=== PATIENT | female | born 1995 | race Caucasian/White ===

== ENCOUNTER 2018-12-29 20:11 | Emergency (ER) | payer OTHER ==
[~2018-12-29] VITALS: Ht 165.1 cm; Wt 89.9 kg
[2018-12-29 20:19] VITALS: Ht 165.1 cm; Wt 89.9 kg
--- NOTE | 2018-12-29 21:51 | ERD ---
ER Documentation Chief Complaint Chief Complaint cramps; mostly constipated; abd pain x 2 days HPI 23-year-old female, previously healthy, presents to the emergency department, complaining of 2 weeks with diffuse colicky abdominal pain, associated with constipation. The pain is described as dull, 5/10. She denies fever, no chills , no diarrhea, no nausea or vomiting. ROS All systems reviewed and are negative except as per history of present illness. Medications Home Meds Active Scripts Acetaminophen* (Tylenol*) 325 Mg Tablet, 2 TAB PO Q6 PRN for PAIN AND OR ELEVATED TEMP, #20 TAB Prov:MARSHA SAVAGE MD 12/29/18 Polyethylene Glycol* (Miralax*) 17 Gm Powd.pack, 17 GM PO DAILY, #7 Prov:MARSHA SAVAGE MD 12/29/18 Magnesium Hydroxide* (Milk Of Magnesia*) 400 Mg/5 Ml Oral.susp, 30 ML PO BID for 3 Days, #1 BOTTLE Prov:MARSHA SAVAGE MD 12/29/18 Allergies Allergies: Coded Allergies: Penicillins (Verified Allergy, Unknown, 12/29/18) PMhx/Soc Hx Alcohol Use: No Hx Substance Use: No Hx Tobacco Use: No Smoking Status: Never smoker FmHx Family History: No diabetes, No coronary disease Physical Exam Vitals Vital Signs Date Temp Pulse Resp B/P (MAP) Pulse Ox O2 O2 Flow FiO2 Time Delivery Rate 12/29/18 98.4 71 20 143/67 100 20:19 (92) Physical Exam Const: No acute distress Head: Atraumatic Eyes: Normal Conjunctiva ENT: Normal External Ears, Nose and Mouth. Neck: Full range of motion. No meningismus. Resp: Clear to auscultation bilaterally Cardio: Regular rate and rhythm, no murmurs Abd: Soft, non tender, non distended. Normal bowel sounds Skin: No petechiae or rashes Back: No midline or flank tenderness Ext: No cyanosis, or edema Neur: Awake and alert Psych: Normal Mood and Affect Result Diagram: 12/29/18221812/29/182218 Results 24 hrs Laboratory Tests Test 12/29/18 22:19 12/29/18 22:26 12/29/18 22:27 White Blood Count 8.5 10^3/ul Red Blood Count 4.58 10^6/ul Hemoglobin 13.5 g/dl Hematocrit 40.0 % Mean Corpuscular Volume 87.3 fl Mean Corpuscular Hemoglobin 29.5 pg Mean Corpuscular Hemoglobin Concent 33.8 g/dl Red Cell Distribution Width 13.4 % Platelet Count 236 10^3/UL Mean Platelet Volume 11.4 fl Immature Granulocytes % 0.200 % Neutrophils % 60.5 % Lymphocytes % 29.9 % Monocytes % 7.3 % Eosinophils % 1.5 % Basophils % 0.6 % Nucleated Red Blood Cells % 0.0 /100WBC Immature Granulocytes # 0.020 10^3/ul Neutrophils # 5.1 10^3/ul Lymphocytes # 2.5 10^3/ul Monocytes # 0.6 10^3/ul Eosinophils # 0.1 10^3/ul Basophils # 0.1 10^3/ul Nucleated Red Blood Cells # 0.0 10^3/ul Sodium Level 143 mmol/L Potassium Level 3.4 mmol/L Chloride Level 112 mmol/L Carbon Dioxide Level 20 mmol/L Anion Gap 11 Blood Urea Nitrogen 8 mg/dl Creatinine 0.83 mg/dl Est Glomerular Filtrat Rate mL/min > 60 mL/min Glucose Level 91 mg/dl Calcium Level 9.8 mg/dl Total Bilirubin 0.6 mg/dl Direct Bilirubin 0.00 mg/dl Indirect Bilirubin 0.6 mg/dl Aspartate Amino Transf (AST/SGOT) 21 IU/L Alanine Aminotransferase (ALT/SGPT) 21 IU/L Alkaline Phosphatase 74 IU/L Total Protein 8.9 g/dl Albumin 4.8 g/dl Globulin 4.10 g/dl Albumin/Globulin Ratio 1.17 Lipase 97 U/L POC Beta HCG, Qualitative NEGATIVE Bedside Urine pH (LAB) 7.0 Bedside Urine Protein (LAB) Negative Bedside Urine Glucose (UA) Negative Bedside Urine Ketones (LAB) 1+ Bedside Urine Blood Negative Bedside Urine Nitrite (LAB) Negative Bedside Urine Leukocyte Esterase (L Trace Procedures/MDM Vital signs stable. Differential diagnosis include but not limited to: UTI, colitis, gastroenteritis, kidney stones, irritable bowel syndrome, inflammatory bowel syndrome, malabsorption syndrome, cholelithiasis, food intolerance, medication side effect, pancreatitis, diverticulitis, bowel obstruction. Physical examination and clinical presentation consistent most likely with constipation. During the ED course the patient remained stable, no new complaints. Results and clinical impression discussed with the patient who agrees with management. The patient is stable to be treated outpatient and will be discharged home; some side effects of prescribed medications (headache, rash, nausea, vomiting, diarrhea, drowsiness, habituation, bleeding, hypertension, interactions with other medications) were reviewed. The patient was informed that the evaluation in the emergency department has been done to rule out an acute emergency, therefore, chronic conditions like malignancy or other diseases have not been evaluated; therefore, the patient was instructed to follow up with the primary care provider in the next 48h. If symptoms persist, worsen or new symptoms develop, then patient should return to the ED immediately. Instructions explained and given directly by me to the patient with acknowledgment and demonstrated understanding. Disclaimer: Inadvertent spelling and grammatical errors are likely due to EHR/dictation software use and do not reflect on the overall quality of patient care. Also, please note that the electronic time recorded on this note does not necessarily reflect the actual time of the patient encounter. Departure Diagnosis: Primary Impression: Abdominal pain Additional Impression: Constipation Condition: Stable Patient Instructions: Constipation (Adult) Additional Instructions: Thank you very much for allowing us to participate in your care. Your health and safety is our top priority at [facility]. The evaluation in the emergency department has been done to rule out an acute emergency. Chronic, [id number] conditions may have not been evaluated; therefore, you need to follow up with a primary care provider in the next 48h. If symptoms persist, worsen or new symptoms develop, then patient should return to the ED immediately. Call your primary care doctor TOMORROW for an appointment during the next 2-4 days and bring all the information provided. Have prescriptions filled and follow precisely the directions on the label. If the symptoms get worse and your provider is unavailable, return to the Emergency Department immediately. MARSHA SAVAGE MD Dec 29, 2018 21:51
[2018-12-29] MEDS ORDERED: MAGN400O19 PO (23:41)
[2018-12-29] MEDS ORDERED: ACET325T33 PO (23:41)
[2018-12-29] MEDS ORDERED: POLY17PO6 PO (23:41)
[2018-12-29 23:49] VITALS: BP 114/63; PULSE 62; RESP 16
== END 2018-12-29 23:51 | disposition home or self-care (01) ==
LOC: FTE 20:11
DX: K59.00 Constipation, unspecified (principal)
CPT/HCPCS: 36415; 74019; 80053; 81003; 81025; 83690; 85025; Z7502

== ENCOUNTER 2019-01-01 21:45 | Emergency (ER) | payer OTHER ==
[~2019-01-01] VITALS: Ht 172.7 cm; Wt 89.1 kg
[~2019-01-01 21:45] MED LIST: ACET325T33 PO; MAGN400O19 PO; POLY17PO6 PO
[2019-01-01 21:48] VITALS: BP 129/73; PULSE 77; RESP 26; Ht 172.7 cm; Wt 89.1 kg
[2019-01-01] MEDS ORDERED: MECL12.574 PO (22:19)
--- NOTE | 2019-01-01 22:26 | ERD ---
ER Documentation Chief Complaint Chief Complaint ANXIETY, TACHYPNIA; C/O DIZZINESS, HANDS TINGLING HPI 23-year-old female with no reported past medical history, questionable history of anxiety who presents with a multitude of complaints. Complaints include feeling of heart racing, intermittent dizziness, right upper extremity and lower extremity tingling, left upper extremity and lower extremity tingling, intermittent facial numbness, and feeling of being anxious. At time of examination patient appeared quite anxious, speaking in fast utterances. She otherwise denies personal history of cardiopulmonary disease, family history of early cardiac , recent trauma or fall, chest pain, shortness of breath, dyspnea, nausea, vomiting, diarrhea, abdominal pain, urinary symptoms. Was seen in emergency room about a month ago for anxiety, prescribed Ativan medication. Does not follow with her PMD and has never been diagnosed officially with gener alized anxiety disorder. Was also previously seen in the emergency room on December 29 and diagnosed with constipation, sent home with MiraLAX, since that time is had regular bowel movements. ROS All systems reviewed and are negative except as per history of present illness. Medications Home Meds Active Scripts Meclizine Hcl* (Antivert*) 12.5 Mg Tab, 12.5 MG PO Q6H PRN for DIZZINESS, #20 TAB Prov:MACIE ALBARADO PA-C 01/01/19 Acetaminophen* (Tylenol*) 325 Mg Tablet, 2 TAB PO Q6 PRN for PAIN AND OR ELEVATED TEMP, #20 TAB Prov:MARSHA SAVAGE MD 12/29/18 Polyethylene Glycol* (Miralax*) 17 Gm Powd.pack, 17 GM PO DAILY, #7 Prov:MARSHA SAVAGE MD 12/29/18 Magnesium Hydroxide* (Milk Of Magnesia*) 400 Mg/5 Ml Oral.susp, 30 ML PO BID for 3 Days, #1 BOTTLE Prov:MARSHA SAVAGE MD 12/29/18 Allergies Allergies: Coded Allergies: Penicillins (Verified Allergy, Unknown, 12/29/18) PMhx/Soc Hx Miscellaneous Medical Probl: Yes (anxiety,constipation) Hx Alcohol Use: Yes (drink every other month) Hx Substance Use: Yes (CBD last used 1wk ago) Hx Tobacco Use: No Smoking Status: Never smoker FmHx Family History: No diabetes, No coronary disease, No other Physical Exam Vitals Vital Signs Date Temp Pulse Resp B/P (MAP) Pulse Ox O2 O2 Flow FiO2 Time Delivery Rate 01/01/19 97.8 77 26 129/73 100 21:48 (91) Physical Exam I have reviewed the triage vital signs. Const: Well nourished, well developed, appears stated age, very anxious Eyes: PERRL, no conjunctival injection HENT: NCAT, Neck supple without meningismus CV: RRR, Warm, well-perfused extremities RESP: CTAB, Unlabored respiratory effort GI: soft, non-tender, non-distended, no masses MSK: No gross deformities appreciated Skin: Warm, dry. No rashes Neuro: grossly non focal Psych: Appropriate mood and affect. Procedures/MDM 23-year-old female who presents with multitude of complaints. Despite complaints I have low suspicion for acute process any further emergent care or work-up. Patient quite anxious during examination and evaluation. Her constel lation of symptoms are likely secondary to generalized anxiety disorder/panic attack. She has normal triage vital signs, no tachycardia, normal blood pressure. She exhibits no red flag cyst symptoms and has a reassuring physical examination. We will treat symptomatically with meclizine, single dose of Ativan given, patient driven by family to the ED and plans to be driven home by family. She already has Rx for Ativan which she has not been taking, patient advised to take medication for anxiety. Instructed patient she needs to establish care with PMD, clinic numbers given, patient expressing understanding and agrees to establish care with appropriate providers. Strict return precautions explained in detail to patient and parent who at bedside. DISPOSITION PLAN: We discussed follow up with the patient's primary care doctor within 24 to 48 hours. Patient counseled regarding my diagnostic impression and care plan. Prior to discharge all questions answered. Pt agrees with treatment plan and understands strict return precautions. Precautionary instructions provided including instructions to return to the ER if not improving or for any worsening or changing symptoms or concerns. Disclaimer: Inadvertent spelling and grammatical errors are likely due to EHR/di ctation software use and do not reflect on the overall quality of patient care. Also, please note that the electronic time recorded on this note does not necessarily reflect the actual time of the patient encounter. Departure Diagnosis: Primary Impression: Anxiety attack Condition: Stable Patient Instructions: Anxiety Reaction, Panic Attack Referrals: COMMUNITY CLINICS YOU HAVE RECEIVED A MEDICAL SCREENING EXAM AND THE RESULTS INDICATE THAT YOU DO NOT HAVE A CONDITION THAT REQUIRES URGENT TREATMENT IN THE EMERGENCY DEPARTMENT. FURTHER EVALUATION AND TREATMENT OF YOUR CONDITION CAN WAIT UNTIL YOU ARE SEEN IN YOUR DOCTORS OFFICE WITHIN THE NEXT 1-2 DAYS. IT IS YOUR RESPONSIBILITY TO MAKE AN APPOINTMENT FOR FOLOW-UP CARE. IF YOU HAVE A PRIMARY DOCTOR --you should call your primary doctor and schedule an appointment IF YOU DO NOT HAVE A PRIMARY DOCTOR YOU CAN CALL OUR PHYSICIAN REFERRAL HOTLINE AT IF YOU CAN NOT AFFORD TO SEE A PHYSICIAN YOU CAN CHOSE FROM THE FOLLOWING [facility] [address] [facility] [facility] [facility] [address] [facility] [facility] [address] [facility] [facility] [address] [facility] [facility] [address] [facility]. [facility]. [address] Additional Instructions: Call your primary care doctor TOMORROW for an appointment during the next 2-3 days.See the doctor sooner or return here if your condition worsens before your appointment time. MACIE ALBARADO PA-C Jan 01, 2019 22:26
[2019-01-01] MEDS ORDERED: LORAZEPAM 1 MG TAB PO ONE (22:30)
== END 2019-01-01 22:38 | disposition home or self-care (01) ==
LOC: FTE 21:45
DX: F41.0 Panic disorder [episodic paroxysmal anxiety] (principal)
CPT/HCPCS: 99283